=== PATIENT | female | born 1950 | race Caucasian/White ===

== ENCOUNTER 2019-02-02 06:52 | Inpatient (IN) | payer MEDICARE, BC ==
[2019-01-27 17:18] LABS: BASOPHILS # (AUTO) 0.1 X10'3 (0-0.2); EOSINOPHILS # (AUTO) 0.1 X10'3 (0-0.9); EOSINOPHILS % (AUTO) 0.7 % (0-6); LYMPHOCYTES # (AUTO) 4.3 X10'3 (1.1-4.8); LYMPHOCYTES % (AUTO) 49.6 % (21-51); MEAN CORPUSCULAR HEMOGLOBIN 32.3 PG (27.0-31.0); MEAN CORPUSCULAR HGB CONC 33.9 g/dL (33.0-36.5); MEAN CORPUSCULAR VOLUME 95.3 FL (78-98); MEAN PLATELET VOLUME 8.4 FL (7.4-10.4); MONOCYTES # (AUTO) 0.6 X10'3 (0-0.9); MONOCYTES % (AUTO) 6.6 % (2-12); NEUTROPHILS # (AUTO) 3.6 X10'3 (1.8-7.7); NEUTROPHILS % (AUTO) 42.1 % (42-75); PRE OP HEMATOCRIT 43.2 % (35.0-45.0); PRE OP HEMOGLOBIN 14.6 g/dL (12.0-16.0); PRE OP PLATELET COUNT 286 X10'3 (140-440); RED BLOOD COUNT 4.53 X10'6 (4.20-5.60); RED CELL DISTRIBUTION WIDTH 12.2 % (11.5-14.5)
[2019-01-27 17:24] LABS: ALBUMIN 4.2 G/DL (3.4-5.0); ALBUMIN/GLOBULIN RATIO 1.3 (1.1-1.5); ALKALINE PHOSPHATASE 62 IU/L (46-116); BLOOD UREA NITROGEN 14 MG/DL (7-18); BUN/CREATININE RATIO 17.1 (6.6-38.0); CALCIUM 9.6 MG/DL (8.5-10.1); CHLORIDE 104 MMOL/L (99-107); CREATININE 0.82 MG/DL (0.40-0.90); PRE OP ALT 69 U/L (30-65); PRE OP ANION GAP 10 (8-16); PRE OP AST 43 U/L (10-37); PRE OP BILIRUB, TOTAL 0.7 MG/DL (0.0-1.0); PRE OP GLUCOSE 92 MG/DL (70-104); PRE OP SODIUM 141 MMOL/L (135-145); TOTAL CARBON DIOXIDE 27.3 MMOL/L (24-32); TOTAL PROTEIN 7.4 G/DL (6.4-8.2); eGFR 69 ML/MIN
[2019-01-27 17:29] LABS: PRE OP PROTIME 10.1 SECONDS (9.0-12.0)
[~2019-02-02] VITALS: Ht 162.6 cm; Wt 76.0 kg
[2019-02-02] VITALS (18 sets, daily range): BP systolic 101–149; BP diastolic 41–89
[~2019-02-02 06:52] MED LIST: HYDROcodone/acetaminophen 10/325mg tab PO PRN; HYDROmorphone 1 mg/ml syringe IV PRN; HYDROmorphone inj. 0.5 MG/0.5 ML DISP.SYRIN IV PRN; ROPIVAcaine 0.5% (5mg/ml) 30ml vial ONE; SIMV-42 PO; TRAM50TA2 PO; VANCOMYCIN INJ 1000 MG in NORMAL SALINE 250ml IV.SOLN IV ONE; acetaminophen 325mg tablet PO ONE; acetaminophen 325mg tablet PO PRN; bisacodyl 10mg suppository rectal RC PRN; cefazolin/dext.iso 2gm/100ml 100 ML IV ONE; celeCOXIB 100mg capsule PO ONE; cloNIDine hcl/PF 100mcg/ml inj ONE; diphenhydrAMINE 25mg capsule PO PRN; epiNEPHrine 1 mg/ml inj ONE; famotidine 20mg tablet PO ONE; gabapentin 300mg capsule PO ONE; ketorolac trometh. 30mg/ml inj. ONE; magnesium hydroxide 30ml (MOM) UD suspension PO PRN; metoclopramide 5 mg/ml inj IV ONE; ondansetron/PF 4mg/2ml inj IV PRN; oxyCODONE SR 10mg (sust. release) tab -2 tabs (20mg) PO ONE; ringers solution, lacted 1,000 ML IV SCH; tranexamic acid inj. 1,000 MG in normal saline 100 ML IV ONE; vancomycin 1,000mg inj ONE
[2019-02-02] MEDS ORDERED: tetracaine 1% (10mg/ml) pres. free inj. ONE (06:54)
--- NOTE | 2019-02-02 07:30 | NUR ---
ALLERGY TO SULFA:RASH/HIVES. CELEBREX PO ORDERED PRE-OP. CONFIRMED WITH DR ELE DOHERTY TO ADMINISTER CELEBREX TO PATIENT WITH CURRENT SULFA ALLERGY.
[2019-02-02] MEDS ORDERED: vancomycin/NS 1 GM ADD-VANTAGE 250 ML IV SCH (08:00)
[2019-02-02] MEDS ORDERED: TRAM50TA2 PO (08:01)
[2019-02-02] MEDS ORDERED: metoclopramide 5 mg/ml inj IV ONE ×2 (08:21→08:25)
[2019-02-02] MEDS ORDERED: MIDAZolam 1mg/ml 10ml vial ONE (09:26)
[2019-02-02] MEDS ORDERED: fentaNYL/PF 50MCG/1 ML 2ML syringe ONE (09:26)
[2019-02-02] MEDS ORDERED: ePHEDrine 50MG/ML INJ. ONE (09:39)
--- NOTE | 2019-02-02 10:42 | NUR ---
Received from OR via BED accompanied by Anesthesiologist DR CHILDERS and report given by Anesthesiologist. PT DROWSY, DENIES PAIN. RIGHT HIP W/GAUZE JAVIER CDI, EDUARDO DRAIN, LEG BRACE IN PLACE. DERMATOME LEVEL T-12. L-1. Addendum: 02/02/19 at 1136 by Lucrecia Joseph RN Amended: Links added.
--- NOTE | 2019-02-02 11:40 | NUR ---
received report from lexa lai in recovery
--- NOTE | 2019-02-02 11:42 | NUR ---
Report called to receiving nurse. Transferred via BED, 1 BAG OF PERSONAL Belongings SENT W/PT TO ROOM 4014B, FIRE DEPARTMENT BATTALION CHIEF AT BEDSIDE TO RECEIVE PT, BLL, CALL LIGHT GIVEN, SIDE RAILS UP X 2. Special Issues communicated to receiving nurse. YES. Addendum: 02/02/19 at 1213 by Lucrecia Joseph RN Amended: Links added.
[2019-02-02] MEDS: ceFAZolin 1GM/D5W- ADD-VANTAGE 50 ML IV SCH ×2 (12:34→16:41)
[2019-02-02] MEDS: multivitamins, therapeutics tablet PO SCH (12:35)
[2019-02-02] MEDS: aspirin 325mg tablet PO SCH (12:35)
[2019-02-02] MEDS: gabapentin 300mg capsule PO SCH ×3 (12:35→21:23)
[2019-02-02] MEDS: ascorbic acid 500mg tablet PO SCH ×2 (12:35→19:32)
[2019-02-02] MEDS: potassium cl 20mEq in 1/2 NS 1,000 ML IV SCH ×3 (12:38→23:42)
--- NOTE | 2019-02-02 12:40 | NUR ---
RECOVERY TOLD ME THAT PT HAS RECEIVED A DOSE OF ANCEF AND VANCO IN THE OR PRIOR TO BEING ADMITTED ON FLOOR AND THAT I NEED TO NON-ADMIN THE 0800 DOSES OF THOSE ABX
[2019-02-02] MEDS ORDERED: tranexamic acid inj. 800 MG in normal saline 100ml IV soln 100 ML IV ONE (15:20)
[2019-02-02] MEDS: metoclopramide 5 mg/ml inj IV PRN (18:16)
--- NOTE | 2019-02-02 18:25 | NUR ---
GAVE REPORT TO BYRON JANG
--- NOTE | 2019-02-02 18:25 | NUR ---
Patient in room ORTHO 4014. I have received report from Karrie MATTHEWS and had the opportunity to ask questions and assume patient care.
[2019-02-02] MEDS ORDERED: sennosides 8.6mg tablet PO SCH (21:00)
[2019-02-03 02:00] VITALS: BP 107/56
[2019-02-03] MEDS: HYDROcodone/acetaminophen 10/325mg tab PO PRN ×2 (05:13→10:00)
[2019-02-03 05:48] LABS: BASOPHILS % (AUTO) 0.4 % (0-1); EOSINOPHILS # (AUTO) 0.1 X10'3 (0-0.9); EOSINOPHILS % (AUTO) 0.7 % (0-6); HEMATOCRIT 35.1 % (35.0-45.0); HEMOGLOBIN 12.1 g/dl (12.0-16.0); LYMPHOCYTES # (AUTO) 2.5 X10'3 (1.1-4.8); LYMPHOCYTES % (AUTO) 30.1 % (21-51); MEAN CORPUSCULAR HEMOGLOBIN 32.9 PG (27.0-31.0); MEAN CORPUSCULAR HGB CONC 34.6 g/dL (33.0-36.5); MEAN CORPUSCULAR VOLUME 95.2 FL (78-98); MONOCYTES # (AUTO) 0.8 X10'3 (0-0.9); MONOCYTES % (AUTO) 10.1 % (2-12); NEUTROPHILS # (AUTO) 4.9 X10'3 (1.8-7.7); NEUTROPHILS % (AUTO) 58.7 % (42-75); PLATELET COUNT 205 X10'3 (140-440); RED BLOOD COUNT 3.69 X10'6 (4.20-5.60); RED CELL DISTRIBUTION WIDTH 12.2 % (11.5-14.5); WHITE BLOOD COUNT 8.4 X10'3 (4.5-11.0)
[2019-02-03 05:57] LABS: ANION GAP 7 (8-16); CHLORIDE 106 MMOL/L (99-107); POTASSIUM 3.7 MMOL/L (3.5-5.1); SODIUM 140 MMOL/L (135-145); TOTAL CARBON DIOXIDE 27.4 MMOL/L (24-32)
[2019-02-03 06:00] VITALS: BP 106/76
--- NOTE | 2019-02-03 06:30 | NUR ---
Problems reprioritized. Patient report given, questions answered & plan of care reviewed with Chen MATTHEWS.
--- NOTE | 2019-02-03 06:34 | NUR ---
Patient in room ORTHO 4014. I have received report from Berenice MATTHEWS and had the opportunity to ask questions and assume patient care.
[2019-02-03] MEDS ORDERED: atorvastatin 10mg tablet PO SCH (08:00)
[2019-02-03] MEDS: gabapentin 300mg capsule PO SCH (08:11)
[2019-02-03] MEDS: ascorbic acid 500mg tablet PO SCH (08:11)
[2019-02-03] MEDS: multivitamins, therapeutics tablet PO SCH (08:11)
[2019-02-03] MEDS: aspirin 325mg tablet PO SCH (08:11)
[2019-02-03] MEDS: metoclopramide 5 mg/ml inj IV PRN (10:04)
--- NOTE | 2019-02-03 10:30 | NUR ---
Patient stable for discharge home today with . IV out and all discharge instructions given to patient and .
== END 2019-02-03 10:30 | disposition home or self-care (01) | DRG 470 ==
LOC: PAS IN 06:52 → EDSTATUS 10:00 → ORTHO 4S 11:50 → EDSTATUS 12:45
PROVIDERS: ADMIT Orthopaedic Surgery; ATTEND Orthopaedic Surgery
PROC: 0SR90JZ Replacement of Right Hip Joint with Synthetic Substitute, Open Approach (ICD-10-PCS; principal; 2019-02-02 09:17)
DX: M16.11 Unilateral primary osteoarthritis, right hip (principal); E78.5 Hyperlipidemia, unspecified
CPT/HCPCS: 36415; 71046; 72170; 80051; 80053; 82948; 85025; 85610; 85730; 86885; 86900; 86901; 87081; 97110; 97116; 97161; 97530; A4615; A7000; C1758; C1776; G0378; J0171; J0690; J0735; J1885; J2250; J2405; J2765; J2795; J3010; J3370; J3480; J7120